=== PATIENT | female | born 1960 | race Caucasian/White ===

== ENCOUNTER → 2017-09-15 | Outpatient (CLI) | payer OTHER ==
--- NOTE | 2017-09-15 09:32 | US ---
EXAMINATION TYPE: US thyroid st tissue head/neck DATE OF EXAM: 09/15/2017 COMPARISON: NONE CLINICAL HISTORY: E04.9 Goiter. MD felt enlarged thyroid. Patient on thyroid medication x 1 year. Pat ient states thyroid has gone down since last year. GLAND SIZE: Right Lobe: 6.3 x 3.3 x 3.0 cm Overall Parenchyma: heterogenous Left Lobe: 4.6 x 1.9 x 1.7 cm Overall Parenchyma: heterogeneous Isthmus Thickness: 1.0 cm NODULES RIGHT: # of nodules measured on right: 0 LEFT: # of nodules measured on left: 0 ISTHMUS: # of nodules measured in the isthmus: 0 Bilateral neck scanned, no evidence of lymphadenopathy. Diffusely heterogeneous thyroid bilaterally. Right side enlarged more than the left, isthmus enlarged . IMPRESSION: Diffusely heterogenous enlarged thyroid gland compatible with the patient's history of a thyroid goit er. No focal measurable nodule.
== END ==
LOC: RADUSWWP 08:25
PROVIDERS: ATTEND Internal Medicine
DX: E04.9 Nontoxic goiter, unspecified (principal)
CPT/HCPCS: 76536